=== PATIENT | female | born 1950 | race Caucasian/White ===

== ENCOUNTER 2024-06-24 07:03 | Emergency (ER) | payer MEDICARE, SELFPAY ==
[2024-06-24 07:09] VITALS: BP 160/94
--- NOTE | 2024-06-24 08:00 | ED.MUSCINJ ---
HPI-Injury
General
Chief Complaint: Fall
Source: patient
Exam Limitations: none
Time Seen by Provider: 06/24/24 07:45
History of Present Illness-Injury
Initial Injury comments:
73-year-old female presents with ongoing and chronic fatigue with weakness presents after a fall she sustained yesterday. States her legs just gave out she fell on her knees. She complains of bilateral knee pain and slight lower back pain. She
denies numbness to her legs. No bowel or bladder dysfunction. No other this time
Past History
Past History
ED Past Surgical History: None
Phy Exam
Physical Exam
Physical Exam:
General: Well-appearing female no acute respiratory distress
HEENT: Normocephalic atraumatic
Heart: Regular rate and rhythm
Lungs: Clear no wheeze
Neurologic exam: Alert and oriented subtle tremor noted to the hands and feet. No obvious strength deficit to the lower extremities. No clonus 2+ patellar reflexes
Vascular: 2+ DP pulse bilateral feet
Musculoskeletal exam: Mild tenderness about the knee bilaterally. No deformity no effusion able to straight leg raise bilaterallys
Injury Course
Orders/Labs/Results
Orders:
Orders
06/24/24 07:12
CR Knee - Left 4 Or More View* Urgent
Comment:
Reason For Exam: fall/pain/swelling
CR Knee- Right 4 Or More View* Urgent
Comment:
Reason For Exam: fall/pain/swelling
06/24/24 08:00
CR Lumbar Spine 2 Or 3 Views Urgent
Comment:
Reason For Exam: fall, low back pain
06/24/24 08:01
Walker [Treatment- Walker] ONCE
MDM/Problems Addressed
Differential Diagnosis Includes:
Fall with knee pain and back pain. Consider fracture versus contusion. X-rays of both knees were reviewed and are negative for acute finding. X-rays lumbar spine pending. Patient with chronic weakness and fatigue. This may be a cause of her
fall. No acute nature to this however. Prefers to follow-up with her family doctor regarding further treatment regarding her weakness
*Critical Care Note
Total Time (30-74mins, 75-104mins- exclusive of procedures): Not Applicable
Update Note
Update Note:
X-ray lumbar spine demonstrates degenerative changes most pronounced at L1-L2 and a slight anterior listhesis of L4 on L5. I suspect degenerative changes. Question possible underlying spinal stenosis causing leg weakness at times. Walker was
provided for ambulation. She has an appoint with In the near future. Stable for discharge
ED Attending Note
-
Portions of this chart may have been created with voice recognition software.� Occasional wrong word or��sound alike� substitutions may have occurred due to the inherent limitations of voice recognition software.
Discharge Plan
Departure
Patient Disposition: Home (Routine Discharge)
Date of Disposition: 06/24/24
Time of Disposition: 09:29
Patient with high blood pressure during this ER visit?: No
Discharge Problem:
Fall
Instructions: Preventing falls in adults
Prescriptions:
No Action
Paxlovid 300 mg (150 mg x 2)-100 mg tablets,dose pack
See Rx Instructions .ROUTE .COMPLEX Qty: 30 0RF
Rx Instructions:
take TWO 150 mg tablets of nirmatrelvir with ONE 100 mg tablet of ritonavir twice daily for 5 days
Referrals:
UNKNOWN,NO INTERVIEW [Unknown Provider] -
Activity Restrictions/Additional Instructions:
Use walker if needed for support when ambulating. Return if worse otherwise follow-up with your doctor
Interventions
Interventions:
*Risk Screen - Suicide Last Done: 06/24/24 07:09
*General Assessment Last Done: 06/24/24 07:09
*ED COVID-19 Vaccine History Last Done: 06/24/24 07:09
Discharge Date and Time
Print Language: KHMER
== END 2024-06-24 09:30 | disposition home or self-care (01) ==
LOC: EMR 07:03
PROVIDERS: EMERGENCY PHYSICIAN Emergency Medicine; FAMILY PHYSICIAN Family Medicine
DX: M25.562 Pain in left knee (principal); M25.561 Pain in right knee; M54.50 Low back pain, unspecified; W18.39XA Other fall on same level, initial encounter; R53.83 Other fatigue
CPT/HCPCS: 99284; 72100; 73564

== ENCOUNTER 2024-07-12 08:51 | Emergency (ER) | payer MEDICARE, SELFPAY ==
[2024-07-12 08:55] VITALS: BP 148/89
[2024-07-12 09:33] VITALS: BP 124/76
--- NOTE | 2024-07-12 09:34 | ED.GENMED ---
History of Present Illness
General
Chief Complaint: Change in Mental Status
Time Seen by Provider: 07/12/24 09:04
History of Present Illness
History of Present Illness:
73-year-old female presents to the emergency department for evaluation of fever and altered mental status. She apparently represented for routine orthopedic visit this morning where she was found to be altered and thus sent to the ED. Noted to be
febrile on arrival to the ED. She does not feel as though she is confused. States she felt well this morning aside of her chronic low back pain. Denies any chest pain or shortness of breath, denies dysuria or hematuria.
Past History
Past History
ED Past Surgical History: None
Review of Systems
Review of Systems
Allergies reviewed?: Yes
All Other Systems: ROS reviewed and negative except as documented in HPI and ROS
Phy Exam
Physical Exam
Physical Exam:
GEN: Appears somewhat somnolent but awake for the most part, answers questions appropriately
Eyes: PERRLA, EOMs intact, no scleral icterus
HENT: NCAT, oral mucosa moist
Lungs: CTAB, no wheezes, rales, rhonchi, normal chest wall excursion
Cardiac: Tachycardic, regular
Abdomen: S, NT, ND, NABS, no masses or hepatosplenomegaly
Neuro: AO x 3, no focal deficits to BUE/BLE, normal sensation throughout
MSK: No gross deformity or ecchymosis. No edema. No digital clubbing
Skin: No rashes, petechiae. Normal color, no pallor or jaundice.
Psych: Calm, cooperative, proper hygiene
Sepsis
Sepsis Screening
Sepsis Assessment: Sepsis
Sepsis Screen
Sepsis Screen: Sepsis
Date: 07/12/24
Time: 14:02
Course
Orders/Labs/Results
Orders:
Orders
07/12/24 08:59
Electrocardiogram (*1) Urgent
Reason for Study: Chest Pain
EKG- Treatment ONCE
07/12/24 09:15
Acetaminophen [Tylenol] 650 mg PO NOW STA
07/12/24 09:47
COVID-19 Antigen Urgent
Source: Nasal Swab
Complete Blood Count/With Diff Urgent
Comprehensive Metabolic Panel Urgent
Lactic Acid Q4H
Comment: CANCEL 2nd LACTIC ACID IF 1st LACTIC ACID IS LESS THAN 2
Blood Culture Q30M
[facility] Source: Blood/Venous
Specimen Description:
Influenza A+B Rapid Molecular Urgent
[facility]A Source: Nasal Swab
Specimen Description:
07/12/24 10:25
Urinalysis Reflex To Culture Urgent
Date Specimen was Collected: 07/12/24
Time Specimen was Collected: 10:22
Urine Microscopic Reflex Cult Urgent
Blood Culture Q30M
[facility] Source: Blood/Venous
Specimen Description:
Urine Culture Urgent
[facility]ULA Source: U
Specimen Description:
Date Specimen was Collected: 07/12/24
Time Specimen was Collected: 10:22
07/12/24 11:58
CefTRIAXone [Rocephin] 1,000 mg IV NOW STA
Abnormal Lab Results
07/12/24 07/12/24
09:47 10:25
WBC 12.8 H 10^3/uL
(4.8-10.8)
RDW 14.6 H %
(11.5-14.5)
MPV 11.2 H fL
(7.4-10.4)
Abs Immat Gran (auto) 0.1 H 10^3/uL
(0-0.05)
Absolute Neuts (auto) 10.8 H 10^3/uL
(1.4-6.5)
Absolute Lymphs (auto) 1.1 L 10^3/uL
(1.2-3.4)
Absolute Monos (auto) 0.7 H 10^3/uL
(0.1-0.6)
Neutrophils % 84.5 H %
(42.2-75.2)
Lymphocytes % 8.2 L %
(20.5-51.1)
Chloride 109 H mmol/L
(98-107)
Glucose 109 H mg/dl
(70-99)
Ur Occult Blood Reflex 1+ A
(Negative)
Leukocyte Esterase Rfl 3+ A
(Negative)
Urine RBC 7-10 A /HPF
(0-2)
Urine WBC (Reflex) 30-40 A /HPF
(0-5)
Urine Bacteria (Reflex) Few A
(Negative)
07/12/24 09:47
07/12/24 09:47
Vital Signs
Initial and Last Documented VS:
Initial Vital Signs
Temp Pulse Resp BP Pulse Ox
100.5 F H 135 18 148/89 96
07/12/24 08:55 07/12/24 08:55 07/12/24 08:55 07/12/24 08:55 07/12/24 08:55
Last Documented Vital Signs
Temp Pulse Resp BP Pulse Ox
98.2 F 100 16 124/68 98
07/12/24 11:37 07/12/24 09:45 07/12/24 11:00 07/12/24 12:22 07/12/24 12:22
MDM/Problems Addressed
MDM/Problems Addressed:
Patient's mental status improved with defervesced since in the ED. Workup consistent with acute UTI, at this time she is stable and thus does not require hospitalization, covered with initial dose IV antibiotics, she is amenable with plan for
discharge home
*Critical Care Note
Total Time (30-74mins, 75-104mins- exclusive of procedures): Not Applicable
ED Attending Note
-
Portions of this chart may have been created with voice recognition software.� Occasional wrong word or��sound alike� substitutions may have occurred due to the inherent limitations of voice recognition software.
Discharge Plan
Departure
Patient Disposition: Home (Routine Discharge)
Date of Disposition: 07/12/24
Time of Disposition: 11:58
Patient with high blood pressure during this ER visit?: No
Discharge Problem:
Urinary tract infection
Instructions: Urinary tract infection in adults - ED discharge instructions
Prescriptions:
New
cefdinir 300 mg capsule
300 mg PO BID Qty: 14 0RF
No Action
Paxlovid 300 mg (150 mg x 2)-100 mg tablets,dose pack
See Rx Instructions .ROUTE .COMPLEX Qty: 30 0RF
Rx Instructions:
take TWO 150 mg tablets of nirmatrelvir with ONE 100 mg tablet of ritonavir twice daily for 5 days
Referrals:
Danielle Mercedes, DO [Family Provider] -
Activity Restrictions/Additional Instructions:
If you cannot tolerate the oral antibiotics return to the emergency department for further IV treatment
Interventions
Interventions:
*Risk Screen - Suicide Last Done: 07/12/24 09:58
*General Assessment Last Done: 07/12/24 09:52
*Neglect/Abuse Screening Last Done: 07/12/24 09:57
*ED- Fall Risk Assessment Last Done: 07/12/24 09:52
*ED COVID-19 Vaccine History Last Done: 07/12/24 09:52
*Nursing Disposition Last Done: 07/12/24 12:23
ED- Neurological Assessment Last Done: 07/12/24 09:56
ED Swallowing Screen Last Done: 07/12/24 09:55
Discharge Date and Time
Discharge Date/Time: 07/12/24 12:23
Print Language: [id number]
[2024-07-12] MEDS: TYLENOL 650 MG PO (09:50)
[2024-07-12 09:54] VITALS: BMI 31.3
[2024-07-12 10:07] LABS: % Basophils 0.4 % (0-2); % Eosinophils 1.3 % (0-6); % Immature Granulocytes 0.5 % (0-0.5); % Lymphocytes 8.2 % (20.5-51.1); % Monocytes 5.1 % (1.7-9.3); % Neutrophils 84.5 % (42.2-75.2); Absolute Basophils 0.1 10^3/uL (0-0.2); Absolute Eosinophils 0.2 10^3/uL (0-0.7); Absolute Immature Granulocytes 0.1 10^3/uL (0-0.05); Absolute Lymphocytes 1.1 10^3/uL (1.2-3.4); Absolute Monocytes 0.7 10^3/uL (0.1-0.6); Absolute Neutrophils 10.8 10^3/uL (1.4-6.5); Hematocrit 40.1 % (37.0-47.0); Hemoglobin 13.4 g/dL (12.0-16.0); Mean Corp Hgb Conc. 33.4 g/dL (33.0-37.0); Mean Corpuscular Hgb 30.2 pg (27.0-31.0); Mean Corpuscular Volume 90.3 fL (81.0-99.0); Mean Platelet Volume 11.2 fL (7.4-10.4); Nucleated Red Blood Cells % 0 %; Platelet Count 224 10^3/uL (130-400); Red Blood Cell Count 4.44 10^6/uL (4.20-5.40); Red Cell Dist. Width 14.6 % (11.5-14.5); White Blood Cell Count 12.8 10^3/uL (4.8-10.8)
[2024-07-12 10:21] LABS: ALT (SGPT) 14 U/L (0-35); AST (SGOT) 27 U/L (14-36); Albumin 4.1 g/dl (3.5-5.0); Alkaline Phosphatase 98 U/L (38-126); Blood Urea Nitrogen 14 mg/dl (7-17); Calcium 9.2 mg/dl (8.4-10.2); Carbon Dioxide 27 mmol/L (22-30); Chloride 109 mmol/L (98-107); Estimated Creatinine Clearance 57 ml/min; Glucose 109 mg/dl (70-99); Potassium 4.6 mmol/L (3.5-5.1); Sodium 140 mmol/L (135-145); Total Protein 6.5 g/dl (6.3-8.2); eGFR > 60.00
[2024-07-12 10:22] LABS: Lactic Acid 0.9 mmol/L (0.7-2.0)
[2024-07-12 10:39] LABS: Urine Albumin Negative (Neg - Trace); Urine Bilirubin Negative (Negative); Urine Character Slightly Cloudy (Clear); Urine Color Yellow; Urine Glucose Negative (Negative); Urine Ketone Negative (Negative); Urine Leukocyte 3+ (Negative); Urine Nitrite Negative (Negative); Urine Occult Blood 1+ (Negative); Urine Specific Gravity 1.005 (<1.030); Urine Urobilinogen Negative (Neg - 1+)
[2024-07-12 10:39] LABS: COVID-19 Antigen Negative (Negative)
[2024-07-12 11:44] LABS: Urine Amorphous Seen; Urine Mucus Few
[2024-07-12 11:46] LABS: Urine White Cell 30-40 /HPF (0-5)
[2024-07-12 11:49] LABS: Urine Bacteria Few (Negative)
[2024-07-12] MEDS: ROCEPHIN 1000 MG IV (12:10)
[2024-07-12 12:22] VITALS: BP 124/68
== END 2024-07-12 12:23 | disposition home or self-care (01) ==
LOC: EMR 08:51
PROVIDERS: Physician Assistant; EMERGENCY PHYSICIAN Emergency Medicine; FAMILY PHYSICIAN Family Medicine
DX: N39.0 Urinary tract infection, site not specified (principal); Z11.52 Encounter for screening for COVID-19
CPT/HCPCS: 96374; 99284; 80053; 81003; 81015; 83605; 85025; 87040; 87086; 87502; 87811; 93005

== ENCOUNTER → 2024-09-28 06:57 | Outpatient (REF) | payer MEDICARE, SELFPAY | LOC: MRI 06:57 | PROVIDERS: ATTENDING PHYSICIAN Physician Assistant Surgical; FAMILY PHYSICIAN Family Medicine | DX: M54.16 Radiculopathy, lumbar region (principal); M54.50 Low back pain, unspecified; M43.16 Spondylolisthesis, lumbar region; M21.372 Foot drop, left foot | CPT/HCPCS: 72148 ==